=== PATIENT | male | born 1940 | race Caucasian/White ===

== ENCOUNTER 2016-09-05 17:41 | Observation (INO) | payer MEDICARE ==
[~2016-09-05] VITALS: Ht 175.3 cm; Wt 72.6 kg
[2016-09-05 18:17] LABS: BASOPHILS 0.5 % (0-2); EOSINOPHILS 2.3 % (0-7); HEMATOCRIT 48.4 % (42.0-54.0); HEMOGLOBIN 16.2 g/dL (13.5-17.5); IMMATURE GRANULOCYTES 0.1 % (0-5); LYMPHOCYTES 23.6 % (15-50); MCH 32.4 pg (26.0-34.0); MCHC 33.5 g/dL (31.0-37.0); MCV 96.8 fL (80.0-100.0); NEUTROPHILS 65.5 % (40-80); PLATELET COUNT 133 10x3/uL (130-400); RDW 14.1 % (11.5-14.5); WBC 8.3 10x3/uL (4.8-10.8)
[2016-09-05 18:29] LABS: ALBUMIN 5.1 g/dL (3.4-5.0); ALKALINE PHOSPHATASE 74 U/L (46-116); ALT (SGPT) 21 U/L (10-68); CALC OSMOLALITY 276 mosm/kg (275-300); CALCIUM 10.2 mg/dL (8.5-10.1); CARBON DIOXIDE 30.7 mmol/L (21.0-32.0); CHLORIDE - SERUM 99 mmol/L (98-107); GLUCOSE 91 mg/dL (74-106); POTASSIUM - SERUM 4.6 mmol/L (3.5-5.1); PROTEIN - SERUM 8.4 g/dL (6.4-8.2); SODIUM 139 mmol/L (136-145); UREA NITROGEN 10 mg/dL (7-18); eGFR NON AFRICAN AMERICAN 77 mL/min (90-120)
[2016-09-05 18:38] LABS: APPEARANCE CLEAR (CLEAR); COLOR YELLOW (YELLOW); GLUCOSE NEGATIVE (NEGATIVE); LEUKOCYTE ESTERASE NEGATIVE (NEGATIVE); NITRITE NEGATIVE (NEGATIVE); PROTEIN NEGATIVE (NEGATIVE); SPECIFIC GRAVITY 1.015 (1.005-1.020)
[2016-09-05 18:39] LABS: BILIRUBIN NEGATIVE (NEGATIVE); KETONE MODERATE mg/dL (NEGATIVE); UROBILINOGEN NORMAL (NORMAL)
[2016-09-05 18:40] LABS: BACTERIA NONE SEEN /hpf (NONE SEEN); EPITHELIAL CELLS 0-5 /hpf (0-5); RED CELLS - URINE 0-5 /hpf (0-5); WHITE CELLS - URINE 0-5 /hpf (0-5)
[2016-09-05 21:14] LABS: AMYLASE - SERUM 72 U/L (25-115); LIPASE 172 U/L (73-393)
[2016-09-05 21:49] LABS: CALC OSMOLALITY 276 mosm/kg (275-300); CALCIUM 9.4 mg/dL (8.5-10.1); CARBON DIOXIDE 30.3 mmol/L (21.0-32.0); CHLORIDE - SERUM 100 mmol/L (98-107); CREATININE - SERUM 0.9 mg/dL (0.6-1.3); GLUCOSE 172 mg/dL (74-106); POTASSIUM - SERUM 4.3 mmol/L (3.5-5.1); SODIUM 137 mmol/L (136-145); UREA NITROGEN 9 mg/dL (7-18); eGFR NON AFRICAN AMERICAN 87 mL/min (90-120)
[2016-09-05] MEDS ORDERED: NEURONTIN 300300 MG PO (22:57)
[2016-09-05] MEDS ORDERED: GLUCOPHAGE1000 MG PO (22:57)
[2016-09-05] MEDS ORDERED: NOVOLIN N100 U/ML SQ ×2 (22:58)
[2016-09-05 23:11] VITALS: BP 151/73; BMI 23.6
--- NOTE | 2016-09-05 23:30 | NUR ---
ADMISSION ASSESSMENT COMPLETE. PATIENT IS RESTING IN BED AND DENIES NEEDS AT THIS TIME. BED IN LOWEST POSITION AND CALL LIGHT WITHIN REACH. ENCOURAGED THE PATIENT TO CALL IF HE HAS NEEDS.
[2016-09-06 04:00] VITALS: BP 146/70
[2016-09-06 04:42] LABS: BASOPHILS 0.5 % (0-2); EOSINOPHILS 3.2 % (0-7); HEMOGLOBIN 14.9 g/dL (13.5-17.5); IMMATURE GRANULOCYTES 0.1 % (0-5); LYMPHOCYTES 22.1 % (15-50); MCH 31.9 pg (26.0-34.0); MCHC 33.1 g/dL (31.0-37.0); MCV 96.4 fL (80.0-100.0); MEAN PLATELET VOLUME 9.1 fL (7.4-10.4); MONOCYTES 9.8 % (2-11); NEUTROPHILS 64.3 % (40-80); PLATELET COUNT 131 10x3/uL (130-400); RBC 4.67 10x6/uL (4.20-6.10); RDW 13.9 % (11.5-14.5); WBC 7.8 10x3/uL (4.8-10.8)
[2016-09-06 05:03] LABS: CALC OSMOLALITY 275 mosm/kg (275-300); CALCIUM 8.9 mg/dL (8.5-10.1); CARBON DIOXIDE 29.4 mmol/L (21.0-32.0); CHLORIDE - SERUM 102 mmol/L (98-107); CREATININE - SERUM 0.9 mg/dL (0.6-1.3); POTASSIUM - SERUM 4.4 mmol/L (3.5-5.1); SODIUM 139 mmol/L (136-145); UREA NITROGEN 8 mg/dL (7-18); eGFR NON AFRICAN AMERICAN 87 mL/min (90-120)
[2016-09-06 05:04] LABS: GLUCOSE 92 mg/dL (74-106)
[2016-09-06 08:08] VITALS: BP 171/82
--- NOTE | 2016-09-06 08:28 | NUR ---
PT. OFF THE UNIT FOR BARRIUM SWALLOW. HE IS ABLE TO TRANSFER SELF FROM THE BED TO WHEELCHAIR.
--- NOTE | 2016-09-06 08:56 | NUR ---
PATIENT RETURNED TO HIS ROOM. NEW ORDERS RECEIVED FOR GI CONSULT. LODGED BOLUS VISUALIZED ON SWALLOW STUDY.
[2016-09-06 11:27] VITALS: BP 172/80
[2016-09-06 12:03] VITALS: Ht 175.3 cm; Wt 72.6 kg
[2016-09-06 15:54] VITALS: BP 178/81
[2016-09-06] MEDS ORDERED: PROTONIX40 MG PO (17:34)
--- NOTE | 2016-09-06 17:45 | NUR ---
REVIEWED DISCHARGE INFORMATION WITH THE PATIENT, INCLUDING MEDICATIONS CALLED TO THE PHARMACY AND NEED FOR FOLLOW UP APPTS AND SOFT DIET. IV REMOVED FROM THE LEFT FA.
--- NOTE | 2016-09-07 06:49 | HP ---
PATIENT: JANELL AKBAR MEDICAL RECORD: [id number] ACCOUNT: [id number] LOCATION:[facility] Read2205 : 39 ADMISSION DATE: 09/05/16 HISTORY AND PHYSICAL EXAMINATION DATE OF ADMISSION: 09/05/2016 CHIEF COMPLAINT: Acute onset of emesis. HISTORY OF PRESENT ILLNESS: The patient is a 76-year-old diabetic male, who on the morning of the , began having vomiting with any liquids or solid foods. He continued throughout the day, he presented to the Emergency Room at 5:30 and it is felt the patient should be admitted. PAST MEDICAL HISTORY: Significant that he has had a history of having diabetes mellitus. He has had a right elbow fusion. He had a vasectomy. He has had lumbar discectomy, tonsillectomy, arthritis. He has also had BPH. FAMILY HISTORY: Father of heart disease. Mother had lung cancer. SOCIAL HISTORY: The patient has been a smoker in the past, stopped in 1984. Educated through the twelfth grade. He denies any ethanol, tobacco use or abuse. He was born and raised in [place], [place]. He currently is , retired contract accountant. ALLERGIES: LUMA INHIBITORS. MEDICATIONS: Include aspirin 325 mg once a day, Keeley 180 once a day, gabapentin 300 mg 3 times a day, losartan 100 mg once a day, metformin 1000 mg p.o. b.i.d.; Novolin N 4 units q.a.m., 11 units q.p.m.; omeprazole 40 mg once a day. REVIEW OF SYSTEMS: CONSTITUTIONAL: He denies any headaches, seizure or syncope. Denied change in visual or auditory acuity. PULMONARY: He denies any shortness of breath, cough, congestion, history of TB, asthma or bronchitis. CARDIOVASCULAR: He has had no chest pain, palpitation, PND or orthopnea. GASTROINTESTINAL: The patient states that over the past year, he has had difficulty with swallowing beef, he has learned to masticate very well prior to swallowing. This does alleviate this problem. GENITOURINARY: No urgency, frequency, or dysuria. PHYSICAL EXAMINATION: GENERAL: In the Emergency Room, the patient was afebrile. VITAL SIGNS: Stable. HEENT: Unremarkable. NECK: Supple. There is no adenopathy. HEART: Had a regular rate and rhythm without murmurs, gallops or rubs. LUNGS: Clear. ABDOMEN: Soft, bowel sounds are positive. No organomegaly. GENITAL AND RECTAL: Deferred. LABORATORY DATA: Initially, his white count was 7.8, hemoglobin 14.9, hematocrit 45, his platelets were 131. Sodium was 139, potassium 4.4, chloride HISTORY AND PHYSICAL [id number] DEMORROW,JANELL E 102, CO2 was 29, BUN is 8, creatinine is 0.9. He has a glucose of 92. His urinalysis showed moderate ketones, trace of blood. He had a normal amylase, normal lipase. LFTs were unremarkable. ASSESSMENT: Diabetes mellitus, history of emesis, possibly secondary to esophageal stricture. PLAN: The patient is admitted. GI consultation will be obtained for possible EGD. He will be placed on Protonix 40 mg IV. He will be kept n.p.o., placed on Humalog sliding scale, IV hydration. TRANSINT:[id number] Voice Confirmation ID: [id number] DOCUMENT ID: [id number] KERRY OLIVERA MD at 0649 CC: [id number] DICTATION DATE: 09/06/16 0708 FISH CHECKER: 09/06/16 0945 DIS IN 09/06/16 [facility] [address] [place] [address]
--- NOTE | 2016-09-08 07:42 | OP ---
PATIENT NAME: JANELL AKBAR MEDICAL RECORD: [id number] :38 LOCATION:D.MS Read2205 ADMISSION DATE:09/05/16 SURGEON: DALTON WONG DO DATE OF OPERATION: 09/06/2016 PROCEDURE: EGD with biopsies and foreign body (food bolus) removal. INDICATIONS FOR PROCEDURE: Dysphagia and regurgitation/emesis. MEDICATIONS: IV medication per anesthesia (TIVA). SCOPE: Olympus video gastroscope. ESTIMATED BLOOD LOSS: Minimal. COMPLICATIONS: None. FINDINGS: Informed consent was given. The patient was made comfortable with propofol by slow IV push. Once an adequate level of sedation was reached, the patient was placed on her left side. The endoscope was then advanced under direct visualization through the mouth to the second portion of the duodenum. Once entering the esophagus, there was apparent fluid up into the proximal and middle esophagus. The fluid was suctioned until the food bolus was located at approximately 40 cm at the GE junction. This appeared to be a meat impaction. The bolus was gently pushed and did traverse the GE junction into the stomach. In the stomach, retroflexion was performed to view the cardia and fundus. There were no obvious abnormalities, but there was still food debris around the cardia. In the antrum and prepyloric region, there was some streaky and patchy erythema and granularity consistent with possible gastritis. Random biopsies were taken to rule out H. pylori and to submit for histology. The scope was advanced beyond the pylorus into the duodenum where there was some inflammation, granularity and erythema located in the bulb and second portion of the duodenum. The scope was then withdrawn from the patient. The patient tolerated the procedure well and there were no complications. IMPRESSION: 1. Foreign body/food bolus located at the GE junction. This was gently pushed into the stomach. 2. Gastritis. 3. Duodenitis. PLAN AND RECOMMENDATIONS: 1. Return to floor. 2. Start soft diet. 3. Chew food well. 4. Proton pump inhibitor at 40 mg daily times 8 weeks. 5. Repeat EGD in 8 weeks as an outpatient. 6. Okay to discharge home from GI standpoint. TRANSINT:[id number] Voice Confirmation ID: [id number] DOCUMENT ID: [id number] OPERATIVE REPORT [id number] JANELL AKBAR DALTON WONG DO at 0742 CC: [id number] DICTATION DATE: 09/06/16 1638 WELDING ROD COATER: 09/07/16 0022 DIS IN 09/06/16 [facility] [address] [place] [address]
== END 2016-09-06 18:00 | disposition home or self-care (01) ==
LOC: D.ER 17:41 → OBSVTIME 21:13 → D.MS 21:13
PROVIDERS: Emergency Medicine; Family Medicine; Nurse Practitioner Family; ADMIT Family Medicine
DX: T18.128A Food in esophagus causing other injury, initial encounter (principal); X58.XXXA Exposure to other specified factors, initial encounter; R13.10 Dysphagia, unspecified; K21.9 Gastro-esophageal reflux disease without esophagitis

== ENCOUNTER 2018-12-07 10:14 | Day surgery (SDC) | payer MEDICARE ==
[~2018-12-07] VITALS: Ht 172.7 cm; Wt 75.8 kg
[~2018-12-07 10:14] MED LIST: COZAAR100 MG PO; GLUCOPHAGE1000 MG PO; NEURONTIN 300300 MG PO; NOVOLIN N100 U/ML SQ; PROTONIX40 MG PO; SULFAMETHOXAZOL1 TA2 PO
[2018-12-07 10:56] LABS: BASOPHILS 0.5 % (0-2); EOSINOPHILS 7.8 % (0-7); HEMATOCRIT 39.3 % (42.0-54.0); HEMOGLOBIN 13.8 g/dL (13.5-17.5); IMMATURE GRANULOCYTES 0.2 % (0-5); LYMPHOCYTES 22.8 % (15-50); MCH 32.4 pg (26.0-34.0); MCHC 35.1 g/dL (31.0-37.0); MCV 92.3 fL (80.0-100.0); MEAN PLATELET VOLUME 8.8 fL (7.4-10.4); NEUTROPHILS 55.7 % (40-80); PLATELET COUNT 134 10x3/uL (130-400); RBC 4.26 10x6/uL (4.20-6.10); RDW 13.7 % (11.5-14.5); WBC 5.5 10x3/uL (4.8-10.8)
[2018-12-07 11:06] LABS: ANION GAP 12.7 mmol/L (8-16); CALCIUM 9.5 mg/dL (8.5-10.1); CARBON DIOXIDE 28.4 mmol/L (21.0-32.0); CREATININE - SERUM 1.1 mg/dL (0.6-1.3); POTASSIUM - SERUM 5.1 mmol/L (3.5-5.1)
[2018-12-07] MEDS ORDERED: SYMBICORT 80-10.2 GM INH (11:27)
[2018-12-07 11:32] VITALS: BP 147/65; Ht 172.7 cm; Wt 75.8 kg
[2018-12-07] MEDS ORDERED: HYDROCODON-ACE1 EA10 PO (13:40)
--- NOTE | 2018-12-07 15:35 | NUR ---
PATIENT AMBULATES TO BATHROOM AND VOIDS LARGE AMOUNT IN TOILET WITHOUT DIFFICULTY. AMBULATES WITHOUT DIZZINESS OR UNSTEADINESS. PIV DC'D WITH TIP INTACT. DISCHARGE INSTRUCTIONS REVIEWED WITH PATIENT AND SPOUSE. PATIENT DRESSING IN PERSONAL CLOTHING
--- NOTE | 2018-12-07 15:40 | NUR ---
DISCHARGED HOME VIA WHEELCHAIR TO PRIVATE VEHICLE WITH SPOUSE
--- NOTE | 2018-12-21 07:19 | OP ---
PATIENT NAME: JANELL AKBAR MEDICAL RECORD: [id number] :38 LOCATION:[facility] ADMISSION DATE: SURGEON: MAYO GALLEGO MD DATE OF OPERATION: 12/07/2018 PREOPERATIVE DIAGNOSES: 1. Scrotal abscess/cyst. 2. Hypertension. 3. Diabetes mellitus. POSTOPERATIVE DIAGNOSES: 1. Scrotal abscess/cyst. 2. Hypertension. 3. Diabetes mellitus. PROCEDURE: Excision of scrotal cyst. SURGEON: Mayo Gallego MD REPORT OF PROCEDURE: The patient was placed in lithotomy position. The perineal region was prepped and draped in sterile fashion. The patient had a large ridge of inflammatory tissue extending from the base of the scrotum towards the anterior aspect of the anus. There was no distinct area of fluctuance and there was no purulence with manipulation. An ovoid incision was made around this midline section of tissue, and using a sharp dissection, we were able to remove this tissue down to the underlying fascial layer. Once this tissue was removed, it was sent off for permanent specimen. We irrigated out the wound thoroughly with normal saline and any bleeding was treated with electrocautery. The skin was then closed with running subcutaneous 5-0 Monocryl and the wound was dressed appropriately. COMPLICATIONS: None. CONDITION: Stable. ANESTHESIA: General endotracheal and local. BLOOD LOSS: Minimal. TRANSINT:[id number] Voice Confirmation ID: [id number] DOCUMENT ID: [id number] MAYO GALLEGO MD at 0719 CC: IRAM KAPOOR [id number] DICTATION DATE: 12/07/18 1344 OVERLOCK HEMMER: 12/07/18 1429 [facility] 12/07/18 [id number] [place] [address]
== END 2018-12-07 15:40 | disposition home or self-care (01) ==
LOC: D.OPS 10:14 → D.PAN 11:35 → D.OPS 11:45 → D.PAN 12:45 → D.OPS 12:45
PROVIDERS: ATTEND Surgery
DX: N49.2 Inflammatory disorders of scrotum (principal); I10 Essential (primary) hypertension; E11.9 Type 2 diabetes mellitus without complications; Z01.812 Encounter for preprocedural laboratory examination

== ENCOUNTER → 2019-09-07 11:40 | Outpatient (CLI) | payer MEDICARE ==
[2018-12-07 11:32] VITALS: BMI 25.4
[~2019-09-07 11:40] MED LIST changes: +HYDROCODON-ACE1 EA10 PO; +SYMBICORT 80-10.2 GM INH
[2019-09-07 17:05] LABS: BASOPHILS 0.9 % (0-2); EOSINOPHILS 3.9 % (0-7); HEMATOCRIT 37.5 % (42.0-54.0); HEMOGLOBIN 11.4 g/dL (13.5-17.5); IMMATURE GRANULOCYTES 0.2 % (0-5); LYMPHOCYTES 21.3 % (15-50); MCH 29.9 pg (26.0-34.0); MCHC 30.4 g/dL (31.0-37.0); MCV 98.4 fL (80.0-100.0); MEAN PLATELET VOLUME 9.4 fL (7.4-10.4); MONOCYTES 13.6 % (2-11); NEUTROPHILS 60.1 % (40-80); RBC 3.81 10x6/uL (4.20-6.10); RDW 17.6 % (11.5-14.5); WBC 5.7 10x3/uL (4.8-10.8)
[2019-09-07 17:11] LABS: PLATELET COUNT 180 10x3/uL (130-400)
[2019-09-07 17:55] LABS: ANION GAP 10.1 mmol/L (8-16); CALCIUM 9.6 mg/dL (8.5-10.1); CREATININE - SERUM 1.1 mg/dL (0.6-1.3); POTASSIUM - SERUM 4.1 mmol/L (3.5-5.1)
== END | disposition home or self-care (01) ==
LOC: D.LABREF 11:40
PROVIDERS: ATTEND Family Medicine
DX: I50.9 Heart failure, unspecified (principal); J43.9 Emphysema, unspecified

== ENCOUNTER → 2019-09-18 16:35 | Outpatient (CLI) | payer MEDICARE ==
[2018-12-07 11:32] VITALS: BMI 25.4
[2019-09-18 17:12] LABS: BASOPHILS 0.7 % (0-2); EOSINOPHILS 4.7 % (0-7); HEMATOCRIT 38.7 % (42.0-54.0); HEMOGLOBIN 11.9 g/dL (13.5-17.5); IMMATURE GRANULOCYTES 0.2 % (0-5); LYMPHOCYTES 26.8 % (15-50); MCHC 30.7 g/dL (31.0-37.0); MCV 97.5 fL (80.0-100.0); MEAN PLATELET VOLUME 10.1 fL (7.4-10.4); NEUTROPHILS 55.6 % (40-80); PLATELET COUNT 146 10x3/uL (130-400); RBC 3.97 10x6/uL (4.20-6.10); RDW 16.9 % (11.5-14.5); WBC 5.9 10x3/uL (4.8-10.8)
== END | disposition home or self-care (01) ==
LOC: D.LABREF 16:35
PROVIDERS: ATTEND Family Medicine
DX: Z87.01 Personal history of pneumonia (recurrent) (principal); I48.0 Paroxysmal atrial fibrillation; J43.9 Emphysema, unspecified